=== PATIENT | male | born 1990 | race Caucasian/White ===

== ENCOUNTER 2019-08-02 08:58 | Emergency (ER) | payer OTHER, MEDICAID ==
[2019-08-02] MEDS ORDERED: Ondansetron INJ* 2 MG/ML VIAL IV ONE (09:09)
[2019-08-02] MEDS ORDERED: Morphine 4 MG/ML VIAL (1 ml) 4 MG/ML VIAL IV ONE (09:09)
--- NOTE | 2019-08-02 09:37 | ED ---
GI/ HPI - HPI Summary HPI Summary: 29 y/o male presented to the ED today with a CC of left testicle pain which began this morning. Pt states that this pain awoke him from sleep and is a 8/10 constant "achey" pain which radiates from his left testicle to his lower abdomen. Pt states he was successfully treated for chlamydia 2 years ago. Pt is currently sexually active in a monogamous relationship. His partner is currently asymptomatic at this time. Denies fever, fatigue, chest pain, SOB, penile discharge, pain with urination. - History of Current Complaint Chief Complaint: EDUrogenitalProblems Time Seen by Provider: 08/02/19 09:05 Stated Complaint: TESTICULAR PAIN PER PT Hx Obtained From: Patient Onset/Duration: Started Hours Ago Timing: Constant Severity: Severe Current Severity: Moderate Pain Intensity: 8 Location of Pain: Diffuse, LLQ Additional Locations for Males: Testicles Pain Characteristics: Sharp, Aching Pain Radiates to: LLQ - Allergy/Home Medications Allergies/Adverse Reactions: Allergies Allergy/AdvReac Type Severity Reaction Status Date / Time No Known Allergies Allergy Verified 08/02/19 09:02 Home Medications: Home Medications Loratadine 10 mg PO DAILY PRN 08/02/19 [History Confirmed 08/02/19] PMH/Surg Hx/FS Hx/Imm Hx History: Reports: Other Problems/Disorders - hx of chlamydia in 2017 Infectious Disease History: No Infectious Disease History: Denies: Traveled Outside the [place] in Last 30 Days Review of Systems Constitutional: Negative Negative: Fever Cardiovascular: Negative Negative: Palpitations, Chest Pain Respiratory: Negative Negative: Shortness Of Breath, Cough Gastrointestinal: Negative Positive: Abdominal Pain - LLQ radiated from testicle Positive: see HPI, pain. Negative: burning, dysuria, discharge, frequency, hematuria, incontinence Skin: Negative All Other Systems Reviewed And Are Negative: Yes Physical Exam Triage Information Reviewed: Yes Vital Signs On Initial Exam: Initial Vitals Temp Pulse Resp BP Pulse Ox 97.7 F 84 18 140/92 100 08/02/19 08:59 08/02/19 08:59 08/02/19 08:59 08/02/19 08:59 08/02/19 08:59 Vital Signs Reviewed: Yes Appearance: Positive: Well-Appearing, No Pain Distress, Well-Nourished, Pain Distress Skin: Positive: Warm, Skin Color Reflects Adequate Perfusion Head/Face: Positive: Normal Head/Face Inspection Eyes: Positive: Normal, EOMI, BRENNEN Respiratory/Lung Sounds: Positive: Clear to Auscultation, Breath Sounds Present Cardiovascular: Positive: Normal, RRR, S1, S2 Abdomen Description: Positive: Nontender Male Genital Exam: Positive: No Hernia, Epididymal Tenderness, Testicular Tenderness (L). Negative: Erythema, Inguinal Tenderness, Urethral Discharge Psychiatric: Positive: Normal AVPU Assessment: Alert Procedures - Sedation Patient Received Moderate/Deep Sedation with Procedure: No Diagnostics - Vital Signs Vital Signs Temp Pulse Resp BP Pulse Ox 08/02/19 09:18 16 08/02/19 08:59 97.7 F 84 18 140/92 100 - Laboratory Lab Statement: Any lab studies that have been ordered have been reviewed, and results considered in the medical decision making process. GIGU Course/Dx - Course Course Of Treatment: Pt was evaluated for left testicular pain today in the emergency department. He was given IV morphine for pain releif. Testicular ultrasound was performed and was suggestive of left epididymitis with no evidence of torsion. Pt was given 250mg of IM ceftriaxone in the ED and will be sent home with a prescription for doxycycline (100mg PO BiD x 10 days). Urinalysis and culture for GC/Chlamydia was sent. Pt will also be given a prescription of tramadol for pain releif. Pt was educated to refrain from having sexual intercorse for 10 days and after having completed antimicrobial therapy. Pt was informed to have his partner medicaly examined aswell. Pt instructed to take ibuprofen for mild pain and tramadol for pain not controledwith ibuprofen. Pt is to follow up with his PCP within a week. - Diagnoses Differential Diagnoses - Male: Testicular Torsion Provider Diagnoses: Epididymitis Discharge ED - Sign-Out/Discharge Documenting (check all that apply): Patient Departure - Discharge Plan Condition: Stable Disposition: HOME Prescriptions: DOXYcycline CAP(*) [DOXYcycline 100MG CAP(*)] 100 mg PO BID #20 cap traMADol TAB* [Ultram*] 50 mg PO Q8H PRN #12 tab MDD 3 PRN Reason: Pain Patient Education Materials: Chlamydia (ED), Epididymitis (ED), Gonorrhea (ED) Referrals: [facility] - Justin ISAACS [Primary Care Provider] - Additional Instructions: Refrain form sexual activity for 10 days and until after completing antibiotics. Please have your partner evaluated for risk of gonorrhea and chlamydia. Take antibiotics as directed. Return to the Emergency Department immediately if there are any new or worsening symptoms. Take ibuprofen 600mg as needed every 6 hours for 5 days for mild pain and Tramadol 50mg every 8 hours as needed not well controlled with ibuprofen. If symptoms persist follow up with urology. Testicular support may help with your discomfort. - Billing Disposition and Condition Condition: STABLE Disposition: Home - Attestation Statements Provider Attestation: I have seen the patient with the MACO and agree with the plan and documentation below except as noted: 29 y/o male presents with left testicular pain find to have epididymitis, given antibiotics. F/u w urology. Kaleb Ornelas MD
--- OUTSIDE RECORDS SUMMARY | 2019-08-02 09:48 | XMS REPORT | Continuity of Care Document ---
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 Andree Rodriguez DO - Family Medicine Care Team Information Tray Room Worker [phone] Problems Active Problems Provider Date Uncomplicated moderate persistent asthma Louis Dunbar MD Onset: 09/2018 Allergic rhinitis Louis Dunbar MD Onset: 07/29/2019 Allergic rhinitis due to pollen Louis Dunbar MD Onset: 07/29/2019 Social History Type Date Description Comments Sex Unknown Tobacco Use Start: Unknown Patient has never smoked Smoking Status Reviewed: 07/29/19 Patient has never smoked Allergies, Adverse Reactions, Alerts Description No Known Drug Allergies Medications Active Medications SIG Qnty Indications Ordering Provider Date Proair HFA 2 puffs every 4 25.5gm J30.1 Louis Ferguson 07/29/2019 as needed MD Manjinder 108(90Base) mcg/Act Aerosol Flonase Allergy 2 puffs each Unknown Relief nostril every 50mcg/Act day Suspension Immunizations Description No Information Available Vital Signs Date Vital Result Comment 07/29/2019 10:02am BP Systolic 136 mmHg BP Diastolic 85 mmHg Height 67 inches 5'7" Weight 140.00 lb BMI (Body Mass Index) 21.9 kg/m2 Heart Rate 73 /min O2 % BldC Oximetry 99 % Results Test Acquired Date Facility Test Result H/L Range Note Laboratory test 07/29/2019 [facility] Total <pending> finding [address] [place], [place] [id number] [phone] .CBC Auto Diff 07/29/2019 [facility]#Other <pending> [address] [place] [address] [phone] Order 07/29/2019 [facility] Inhaler <pending> Training-Patient Demonstrates Competency Nitric Oxide <pending> PFT Supplies <pending> PFT With Bronchodilator <pending> Skin Test Seasonal and Environmental <pending> Procedures Date Code Description Status 07/29/2019 03468 Nitric Oxide Gas Determination Completed 07/29/2019 79454 Allergy Tests Percutaneous W/ Allergenic Extracts Completed 07/29/2019 36696 Demonstration/Eval,Of Patient Utilization Of Completed Aerosol,Nebulizer 07/29/2019 22489 Bronchodilation Responsiveness Spirometry Pre/Post Completed Bronchodil Adm Medical Devices Description No Information Available Encounters Description No Information Available Assessments Date Code Description Provider 07/29/2019 J30.1 Allergic rhinitis due to pollen Louis Dunbar MD 07/29/2019 J30.89 Other allergic rhinitis Louis Dunbar MD 07/29/2019 J45.40 Moderate persistent asthma, uncomplicated Louis Dunbar MD Plan of Treatment 07/29/2019 - Louis Dunbar MDJ30.1 Allergic rhinitis due to pollenNew Medication:Proair HFA 108(90 Base) mcg/Act - 2 puffs every 4 as iivxdgM34.89 Other allergic lioyzyyzW06.40 Moderate persistent asthma, uncomplicated Functional Status Description No Information Available Mental Status Description No Information Available Referrals Description No Information Available
[2019-08-02] MEDS ORDERED: Lidocaine 1% MPF ** 5 ML VIAL IM ONE (10:22)
[2019-08-02] MEDS ORDERED: cefTRIAXone VIAL(*) 250 MG VIAL IM ONE (10:22)
[2019-08-02 10:42] LABS: Urine Appearance Clear; Urine Bilirubin Negative (Negative); Urine Blood Negative (Negative); Urine Color Yellow; Urine Glucose Negative (Negative); Urine Ketones Negative (Negative); Urine Nitrite Negative (Negative); Urine Protein Negative (Negative); Urine Specific Gravity 1.026 (1.010-1.030); Urine Urobilinogen Negative (Negative)
[2019-08-02 11:11] VITALS: BP 124/76
[2019-08-03 13:50] LABS: Chlamydia trachomatis NAA Negative (Negative); Neisseria gonorrhoeae (GC) NAA Negative (Negative)
== END 2019-08-02 11:13 | disposition home or self-care (01) ==
LOC: ED 08:58
DX: N45.1 Epididymitis (principal)
CPT/HCPCS: 76870; 81003; 87491; 87591; 96372; 96374; 96375; 99282; J0696; J2270; J2405

== ENCOUNTER 2020-01-21 11:49 | Emergency (ER) | payer OTHER, MEDICAID ==
[2020-01-21 12:01] VITALS: BP 132/83
--- NOTE | 2020-01-21 12:14 | UC ---
Complaint Male HPI - HPI Summary HPI Summary: 29-year-old male presents with 2 day history of urinary frequency and urgency. States he feels like his unable to fully empty his bladder. Complains of some suprapubic pressure as well as left testicular pain. Reports pain is constant and does not worsen with touch. States he has been in a monogamous relationship with a female partner for the past 2 years. No concern for sexually transmitted infection. Denies fever, chills, malaise, back or flank pain, nausea, vomiting, scrotal swelling, dysuria, frequency, penile discharge or lesions. - History of Current Complaint Chief Complaint: UCGU Stated Complaint: URINARY ISSUE Time Seen by Provider: 01/21/20 11:53 Hx Obtained From: Patient Pain Intensity: 4 - Allergies/Home Medications Allergies/Adverse Reactions: Allergies Allergy/AdvReac Type Severity Reaction Status Date / Time No Known Allergies Allergy Verified 01/21/20 12:01 Home Medications: Home Medications Loratadine 10 mg PO DAILY PRN 08/02/19 [History Confirmed 01/21/20] Sulfamethox/Trimethoprim DS* [Bactrim DS 800/160 TAB*] 1 tab PO BID 10 Days #20 tab 01/21/20 [Rx] PMH/Surg Hx/FS Hx/Imm Hx Previously Healthy: Yes - Denies significant PMH - Surgical History Surgical History: None - Family History Family History: Denies significant FMH - Social History Occupation: Employed Full-time Lives: Alone Alcohol Use: Rare Substance Use Type: None Smoking Status (MU): Never Smoked Tobacco Review of Systems All Other Systems Reviewed And Are Negative: Yes Constitutional: Negative: Fever, Chills Skin: Negative: Rash Respiratory: Positive: Negative Cardiovascular: Positive: Negative Gastrointestinal: Positive: Abdominal Pain. Negative: Vomiting, Nausea Genitourinary: Positive: Frequency, Urgency. Negative: Dysuria, Hematuria, Vaginal/Penile Discharge, Ulceration/Lesion Musculoskeletal: Positive: Negative Neurological/Mental Status: Positive: Negative Is Patient Immunocompromised?: No Physical Exam - Summary Physical Exam Summary: GENERAL APPEARANCE: Well developed, well nourished, alert and cooperative, and appears to be in no acute distress. CARDIAC: Normal S1 and S2. No S3, S4 or murmurs. Rhythm is regular. There is no peripheral edema, cyanosis or pallor. Extremities are warm and well perfused. Capillary refill is less than 2 seconds. Peripheral pulses intact. LUNGS: Clear to auscultation without rales, rhonchi, wheezing or diminished breath sounds. ABDOMEN: Positive bowel sounds. Soft, nondistended, nontender. No guarding or rebound. No masses or hepatosplenomegally. No CVA tenderness. GENITALIA: Uncircumcised. Normal penis without lesions. No urethral discharge. No scrotal edema. Bilateral testes smooth and non-tender. + cremasteric reflex. MUSKULOSKELETAL: ROM intact to all extremities. No joint erythema or tenderness. Normal muscular development. Normal gait. SKIN: Skin normal color, texture and turgor with no lesions or eruptions. Triage Information Reviewed: Yes Vital Signs: Initial Vital Signs Temp 98.9 F 01/21/20 11:57 Pulse 79 01/21/20 11:57 Resp 16 01/21/20 11:57 BP 132/83 01/21/20 11:57 Pulse Ox 100 01/21/20 11:57 Vital Signs Reviewed: Yes Complaint Male Course/Dx - Course Course Of Treatment: 29-year-old male presents with 2 day history of urinary frequency and urgency. States he feels like his unable to fully empty his bladder. Complains of some suprapubic pressure as well as left testicular pain. Reports pain is constant and does not worsen with touch. States he has been in a monogamous relationship with a female partner for the past 2 years. No concern for sexually transmitted infection. Denies fever, chills, malaise, back or flank pain, nausea, vomiting, scrotal swelling, dysuria, frequency, penile discharge or lesions. Afebrile. Vital signs stable. Patient's exam is overall unremarkable. [id number]-[id number] urinalysis was normal. Reviewed results with the patient. Urine culture as well as testing for gonorrhea and chlamydia is pending. Discussed with the patient that based on his history he likely has an epididymitis although I cannot fully exclude the possibility of prostatitis. I have a very low suspicion for sexually transmitted infection therefore I will start him on Bactrim DS twice daily 10 days which should cover him for both the epididymitis and prostatitis. He is to follow-up with urology in 7 days if symptoms do not improve. Anticipatory guidance and warning symptoms were reviewed with the patient. Verbalizes understanding and agrees with plan of care. - Differential Dx/Diagnosis Differential Diagnosis/HQI/PQRI: Epididymitis, Incarcerated Hernia, Prostatitis , Testicular Torsion, Urinary Tract Infection, Other - STI Provider Diagnosis: Epididymitis Discharge ED - Sign-Out/Discharge Documenting (check all that apply): Patient Departure All imaging exams completed and their final reports reviewed: No Studies - Discharge Plan Condition: Stable Disposition: HOME Prescriptions: Sulfamethox/Trimethoprim DS* [Bactrim DS 800/160 TAB*] 1 tab PO BID 10 Days #20 tab Patient Education Materials: Epididymitis (ED) Referrals: [facility] - Justin ISAACS [Primary Care Provider] - Gio Lund MD [Medical Doctor] - 7 Days (Follow up in 7 days if symptoms do not improve. Call for an appointment.) Additional Instructions: The urine test performed in the clinic today was negative. We will send a urine culture to see if any bacteria grow out as well as test for a possible infection with gonorrhea or chlamydia. It may take up to 72 hours to get the results of these tests. Based on your history and exam we will treat you for a likely epididymitis although I cannot fully exclude the possibility of prostatitis. We will start she was on an antibiotic that would treat for either of these conditions. Start Bactrim DS 1 tablet twice daily for 10 days. Be sure to take the entire course even if feeling better. Use an [id number]-ixl-amtbima anti-inflammatory pain medication such as ibuprofen ( Advil, Motrin) or naproxen (Aleve) according directions as needed for pain. Follow-up with urology in 7 days if symptoms are not improving. Seek immediate medical attention if you develop a fever greater than 100.5 F, has severe abdominal or back pain, persistent vomiting, worsening testicular pain, swelling of the scrotum, inability to urinate, or have any worsening of symptoms. - Billing Disposition and Condition Condition: STABLE Disposition: Home - Attestation Statements Provider Attestation: I was available for consult. This patient was seen by the MACO. The patient was not presented to , seen by or examined by la -Juan Alexandra MD
--- NOTE | 2020-01-23 08:41 | UC ---
- Progress Note Progress Note: Urine culture showed no growth; please advise him of this. He is being treated for suspected prostatitis so should continue to take the bactrim as directed with follow up to urology as reviewed. Course/Dx - Diagnoses Provider Diagnoses: Epididymitis Discharge ED - Sign-Out/Discharge Documenting (check all that apply): Post-Discharge Follow Up All imaging exams completed and their final reports reviewed: No Studies - Discharge Plan Condition: Stable Disposition: HOME Prescriptions: Sulfamethox/Trimethoprim DS* [Bactrim DS 800/160 TAB*] 1 tab PO BID 10 Days #20 tab Patient Education Materials: Epididymitis (ED) Referrals: [facility] - Justin ISAACS [Primary Care Provider] - Gio Lund MD [Medical Doctor] - 7 Days (Follow up in 7 days if symptoms do not improve. Call for an appointment.) Additional Instructions: The urine test performed in the clinic today was negative. We will send a urine culture to see if any bacteria grow out as well as test for a possible infection with gonorrhea or chlamydia. It may take up to 72 hours to get the results of these tests. Based on your history and exam we will treat you for a likely epididymitis although I cannot fully exclude the possibility of prostatitis. We will start she was on an antibiotic that would treat for either of these conditions. Start Bactrim DS 1 tablet twice daily for 10 days. Be sure to take the entire course even if feeling better. Use an [id number] anti-inflammatory pain medication such as ibuprofen ( Advil, Motrin) or naproxen (Aleve) according directions as needed for pain. Follow-up with urology in 7 days if symptoms are not improving. Seek immediate medical attention if you develop a fever greater than 100.5 F, has severe abdominal or back pain, persistent vomiting, worsening testicular pain, swelling of the scrotum, inability to urinate, or have any worsening of symptoms. - Billing Disposition and Condition Condition: STABLE Disposition: Home
[2020-01-23 12:33] LABS: Chlamydia trachomatis NAA Negative (Negative); Neisseria gonorrhoeae (GC) NAA Negative (Negative)
--- NOTE | 2020-01-24 08:21 | UC ---
- Progress Note Progress Note: Please advise that Chlamydia and GC are negative. Course/Dx - Diagnoses Provider Diagnoses: Epididymitis Discharge ED - Sign-Out/Discharge Documenting (check all that apply): Post-Discharge Follow Up All imaging exams completed and their final reports reviewed: No Studies - Discharge Plan Condition: Stable Disposition: HOME Prescriptions: Sulfamethox/Trimethoprim DS* [Bactrim DS 800/160 TAB*] 1 tab PO BID 10 Days #20 tab Patient Education Materials: Epididymitis (ED) Referrals: [facility] - Justin ISAACS [Primary Care Provider] - Gio Lund MD [Medical Doctor] - 7 Days (Follow up in 7 days if symptoms do not improve. Call for an appointment.) Additional Instructions: The urine test performed in the clinic today was negative. We will send a urine culture to see if any bacteria grow out as well as test for a possible infection with gonorrhea or chlamydia. It may take up to 72 hours to get the results of these tests. Based on your history and exam we will treat you for a likely epididymitis although I cannot fully exclude the possibility of prostatitis. We will start she was on an antibiotic that would treat for either of these conditions. Start Bactrim DS 1 tablet twice daily for 10 days. Be sure to take the entire course even if feeling better. Use an [id number]-nfnempx anti-inflammatory pain medication such as ibuprofen ( Advil, Motrin) or naproxen (Aleve) according directions as needed for pain. Follow-up with urology in 7 days if symptoms are not improving. Seek immediate medical attention if you develop a fever greater than 100.5 F, has severe abdominal or back pain, persistent vomiting, worsening testicular pain, swelling of the scrotum, inability to urinate, or have any worsening of symptoms. - Billing Disposition and Condition Condition: STABLE Disposition: Home
== END 2020-01-21 12:50 | disposition home or self-care (01) ==
LOC: UCEAST 11:49
DX: N45.1 Epididymitis (principal)
CPT/HCPCS: 81003; 87086; 87491; 87591; 99212; G0463